=== PATIENT | male | born 1940 | race Caucasian/White ===

== ENCOUNTER 2017-11-22 08:03 | Day surgery (SDC) | payer MEDICARE ==
[~2017-11-22 08:03] MED LIST: AMLODIPINE5 MG PO; DOXAZOSIN4 MG PO; LIPITOR40 M1 PO; LISINOPRIL/HYDR1 TA1 PO; MULT VITAMIN PO; NOVOLIN 70/30 SC; [UNRECOGNIZED DRUG - OTHER]
[2017-11-22 11:22] VITALS: BP 113/55
== END 2017-11-22 11:30 | disposition home or self-care (01) ==
LOC: ENDO 08:03 → ORM 15:30 → ENDO 15:30 → ORM 16:30
PROVIDERS: ATTEND Internal Medicine Gastroenterology
PROC: 0DBK8ZX Excision of Ascending Colon, Via Natural or Artificial Opening Endoscopic, Diagnostic (ICD-10-PCS; principal; 2017-11-22)
PROC: 0DBN8ZX Excision of Sigmoid Colon, Via Natural or Artificial Opening Endoscopic, Diagnostic (ICD-10-PCS; 2017-11-22)
PROC: 0DBP8ZX Excision of Rectum, Via Natural or Artificial Opening Endoscopic, Diagnostic (ICD-10-PCS; 2017-11-22)
DX: K92.1 Melena (principal); D12.2 Benign neoplasm of ascending colon; D12.5 Benign neoplasm of sigmoid colon; D12.8 Benign neoplasm of rectum; K64.4 Residual hemorrhoidal skin tags; K64.8 Other hemorrhoids; K63.5 Polyp of colon; I10 Essential (primary) hypertension; E11.9 Type 2 diabetes mellitus without complications; I48.91 Unspecified atrial fibrillation; Z79.4 Long term (current) use of insulin

== ENCOUNTER 2018-10-24 06:15 | Day surgery (SDC) | payer MEDICARE ==
[~2018-10-24 06:15] MED LIST changes: +ELIQUIS5 MG PO; +PRILOSEC20 MG PO
[2018-10-24 09:36] VITALS: BP 111/51
== END 2018-10-24 09:40 | disposition home or self-care (01) ==
LOC: ENDO 06:15 → ORM 16:45
PROVIDERS: ATTEND Internal Medicine Gastroenterology
PROC: 0DBP8ZX Excision of Rectum, Via Natural or Artificial Opening Endoscopic, Diagnostic (ICD-10-PCS; principal; 2018-10-24)
DX: K57.31 Diverticulosis of large intestine without perforation or abscess with bleeding (principal); K62.1 Rectal polyp; K64.8 Other hemorrhoids; K64.4 Residual hemorrhoidal skin tags; Q43.8 Other specified congenital malformations of intestine; I10 Essential (primary) hypertension; E11.9 Type 2 diabetes mellitus without complications; I48.91 Unspecified atrial fibrillation; Z95.0 Presence of cardiac pacemaker; Z86.010 Personal history of colon polyps